=== PATIENT | male | born 1980 | race Two or more races ===

== ENCOUNTER 2023-12-26 22:10 | Emergency (ER) | payer OTHER ==
[~2023-12-26] VITALS: Ht 170.2 cm; Wt 83.9 kg
[2023-12-26 23:38] VITALS: BP 131/76; TEMP 98.1; O2SAT 98
== END 2023-12-26 23:55 | disposition home or self-care (01) ==
LOC: ER 22:18
DX: R05.9 Cough, unspecified (principal); R50.9 Fever, unspecified; R51.9 Headache, unspecified; R09.81 Nasal congestion
CPT/HCPCS: 71045-TC